=== PATIENT | male | born 1990 | race Caucasian/White ===

== ENCOUNTER 2024-01-28 17:12 | Emergency (ER) | payer OTHER ==
[~2024-01-28] VITALS: Ht 172.7 cm; Wt 93.1 kg
[2024-01-28] MEDS: KETOROLAC TROMETH 60MG/2ML VIAL IM ONE (19:59)
[2024-01-28 20:03] VITALS: BP 153/94; PULSE 85; RESP 20; TEMP 98.6; O2SAT 95
== END 2024-01-28 20:02 | disposition home or self-care (01) ==
LOC: ER 17:12 → EEVIPCON 17:12 → ER 20:02
DX: H72.92 Unspecified perforation of tympanic membrane, left ear (principal); I10 Essential (primary) hypertension
CPT/HCPCS: 70450; 96372; 99285; J1885